=== PATIENT | female | born 1970 | race Caucasian/White ===

== ENCOUNTER 2024-01-14 13:47 | Emergency (ER) | payer SELFPAY ==
[2024-01-14 13:48] VITALS: BP 142/96
[2024-01-14 14:12] LABS: Urine Albumin Negative (Neg - Trace); Urine Bilirubin Negative (Negative); Urine Character Slightly Cloudy (Clear); Urine Color Yellow; Urine Glucose Negative (Negative); Urine Ketone Negative (Negative); Urine Leukocyte Negative (Negative); Urine Nitrite Negative (Negative); Urine Occult Blood Negative (Negative); Urine Urobilinogen Negative (Neg - 1+)
[2024-01-14 14:13] LABS: % Basophils 0.7 % (0-2); % Eosinophils 2.2 % (0-6); % Immature Granulocytes 0.2 % (0-0.5); % Lymphocytes 32.1 % (20.5-51.1); % Monocytes 10.3 % (1.7-9.3); % Neutrophils 54.5 % (42.2-75.2); Absolute Eosinophils 0.1 10^3/uL (0-0.7); Absolute Lymphocytes 1.3 10^3/uL (1.2-3.4); Absolute Monocytes 0.4 10^3/uL (0.1-0.6); Absolute Neutrophils 2.3 10^3/uL (1.4-6.5); Hematocrit 38.9 % (37.0-47.0); Hemoglobin 14.4 g/dL (12.0-16.0); Mean Corpuscular Hgb 33.6 pg (27.0-31.0); Mean Corpuscular Volume 90.7 fL (81.0-99.0); Mean Platelet Volume 9.2 fL (7.4-10.4); Nucleated Red Blood Cells % 0 %; Platelet Count 303 10^3/uL (130-400); Red Blood Cell Count 4.29 10^6/uL (4.20-5.40); Red Cell Dist. Width 11.1 % (11.5-14.5); White Blood Cell Count 4.2 10^3/uL (4.8-10.8)
[2024-01-14 14:24] LABS: HCG, Serum Qualitative Screen Negative
[2024-01-14 14:51] LABS: Alkaline Phosphatase 76 U/L (38-126); Blood Urea Nitrogen 13 mg/dl (7-17); Calcium 9.4 mg/dl (8.4-10.2); Carbon Dioxide 22 mmol/L (22-30); Chloride 107 mmol/L (98-107); Glucose 106 mg/dl (70-99); Potassium 4.4 mmol/L (3.5-5.1); Sodium 139 mmol/L (135-145); eGFR > 60.00
[2024-01-14 14:52] LABS: ALT (SGPT) 18 U/L (0-35); AST (SGOT) 24 U/L (14-36); Albumin 4.3 g/dl (3.5-5.0); Total Bilirubin 0.7 mg/dl (0.2-1.3); Total Protein 6.7 g/dl (6.3-8.2)
--- NOTE | 2024-01-14 15:11 | ED.GENMED ---
History of Present Illness
General
Chief Complaint: Abdominal Symptoms
Source: patient
Time Seen by Provider: 01/14/24 14:56
History of Present Illness
History of Present Illness:
53yoF with a history of anxiety, depression, and GERD presenting for evaluation of abdominal pain. Patient reports low back and LLQ abdominal pain for the past month. The pain was initially coming in waves and stabbing. The pain resolved for a few
days but started to worsen about a week ago. The pain is now constant and is described as a 'scraping' sensation. The pain feels similar to when she had appendicitis in the past. The pain radiates to the low back and the L groin region. Pain is
worse with movement of the L leg and standing. She has been taking ibuprofen without much relief. She has been seen by her PCP as well as urgent care for her symptoms. She was at urgent care about 2 weeks ago. She had blood work, UA, and a KUB done.
She was told that she likely had a kidney stone. Patient denies any dysuria, hematuria, fevers, chills, vomiting, paresthesias. She is having normal bowel movements. Previous abdominal surgeries include an appendectomy and section.
Past History
Past History
ED Past Medical History: Hypercholesterolemia and Psychiatric (A/D)
ED Past Surgical History: Appendectomy and
Social History
Tobacco: Smoker (cigars)
Alcohol: None
Drug: None
Personal:
Living: with family
Phy Exam
General Physical Exam
General Presentation: well appearing and no apparent distress
General age: appears stated age
General Skin: warm and dry
General Habitus: normal
General Mental: alert
ENT Exam
ENT Exam: normocephalic
Cardiovascular Exam
Cardiovascular Exam: regular rate/rhythm
Pulmonary Exam
Pulmonary Exam: lungs clear, no respiratory distress, no crackles and no wheezing
Gastrointestinal Exam
Gastrointestinal Exam: soft, non distended and tender (+Tenderness in LLQ. No rebound, guarding, or rigidity. )
Palpation: left lower quadrant: Moderate tenderness
Neurological Exam
Neurological Exam: alert
Nicole Coma Scale
Eye Opening: Spontaneous
Verbal Response: Oriented
Motor Response: Obeys Commands
GCS Total Score: 15
Musculoskeletal Exam
Musculoskeletal Exam: other (No reproducible tenderness in lumbar region.)
Skin Exam
Skin Exam: normal color and warm/dry
Psychiatric Exam
Psychiatric Exam: normal mood/affect
Course
Orders/Labs/Results
Orders:
Orders
01/14/24 13:52
Test Result ONCE
01/14/24 14:00
Complete Blood Count/With Diff Urgent
Comprehensive Metabolic Panel Urgent
HCG, Serum Qualitative Screen Urgent
Comment: Notify provider if positive test present
Lipase Urgent
Urinalysis Reflex To Culture Urgent
Date Specimen was Collected: 01/14/24
Time Specimen was Collected: 13:52
01/14/24 15:10
CT Abd/pel W Iv And Oral Contr Urgent
Comment:
Reason For Exam: LLQ pain, low back pain, L groin pain
Iohexol [Omnipaque] See Protocol PO NOW STA
01/14/24 15:58
Ketorolac [Toradol] 15 mg IV NOW STA
Abnormal Lab Results
01/14/24
14:00
WBC 4.2 L 10^3/uL
(4.8-10.8)
MCH 33.6 H pg
(27.0-31.0)
RDW 11.1 L %
(11.5-14.5)
Monocytes % 10.3 H %
(1.7-9.3)
Creatinine 0.5 L mg/dL
(0.6-1.0)
Glucose 106 H mg/dl
(70-99)
01/14/24 14:00
01/14/24 14:00
Vital Signs
Initial and Last Documented VS:
Initial Vital Signs
Temp Pulse Resp BP Pulse Ox
98.2 F 100 16 142/96 97
01/14/24 13:48 01/14/24 13:48 01/14/24 13:48 01/14/24 13:48 01/14/24 13:48
Last Documented Vital Signs
Temp Pulse Resp BP Pulse Ox
98.2 F 75 18 151/97 98
01/14/24 13:48 01/14/24 18:57 01/14/24 17:27 01/14/24 18:57 01/14/24 18:57
MDM/Problems Addressed
Differential Diagnosis Includes:
53yoF here with LLQ pain x 1 month. Radiates to low back and L groin. Was previously seen at urgent care and diagnosed clinically with a kidney stone. Here with worsening symptoms. She is afebrile and hemodynamically stable. She is well appearing in
no distress. No signs of peritonitis on abdominal exam. Differential diagnosis includes but is not limited to: diverticulitis, colitis, musculoskeletal, kidney stone, malignancy, nonspecific abdominal pain
Initial ED plan: Abdominal labs and UA obtained in triage. Labs unremarkable including normal renal function, LFTs, lipase. UA bland without microscopic hematuria or signs of infection. Will proceed with CT abdomen.
*Critical Care Note
Total Time (30-74mins, 75-104mins- exclusive of procedures): Not Applicable
Update Note
Update Note:
CT shows a 2.3cm benign appearing L ovarian cyst. There is also a benign LUQ intussusception which is non-obstructing. No obstructive symptoms currently, suspect this is 2/2 peristalsis. Imaging also reveals severe degenerative disc disease along
the L side of L4/L5. No ureterolithiasis seen. Unclear etiology of symptoms. Pain may be 2/2 ovarian cyst vs. radiation from lumbar spine. Offered pelvic ultrasound in ED although very low clinical suspicion for torsion as symptoms have been ongoing
x 1 month. Patient declining ultrasound. She was advised to f/u with PCP, GI, and OBGYN. ED return precautions discussed. She was discharged in stable condition.
ED Attending Note
-
Portions of this chart may have been created with voice recognition software.� Occasional wrong word or��sound alike� substitutions may have occurred due to the inherent limitations of voice recognition software.
Discharge Plan
Departure
Patient Disposition: Home (Routine Discharge)
Date of Disposition: 01/14/24
Time of Disposition: 18:48
Patient with high blood pressure during this ER visit?: No
Discharge Problem:
Left lower quadrant abdominal pain, Cyst of left ovary
Instructions: Abdominal Pain
Prescriptions:
No Action
lamotrigine 100 MG tablet
300 mg PO DAILY
venlafaxine [Effexor] 100 MG tablet
200 mg PO DAILY
methylprednisolone [Medrol (Steve)] 4 MG tablets,dose pack
4 tab PO . DIRECT Qty: 1 0RF
oxycodone-acetaminophen 5 MG/325 MG tablet
1 tab PO Q6HPRN PRN (Reason: pain) Qty: 12 0RF
Referrals:
Manjit Garcia MD [Active] -
Poornima Wilkins, DO [Active] -
UNKNOWN - PT DOES,NOT KNOW [Unknown Provider] -
Activity Restrictions/Additional Instructions:
Apply heat to affected area. Take ibuprofen as needed for pain.
Please follow-up with your family doctor, gastroenterology, and OBGYN.
Return to the ER with any new or worsening symptoms.
Interventions
Interventions:
*Risk Screen - Suicide Last Done: 01/14/24 13:48
*General Assessment Last Done: 01/14/24 13:48
*Neglect/Abuse Screening Last Done: 01/14/24 13:48
*ED COVID-19 Vaccine History Last Done: 01/14/24 13:48
*Nursing Disposition Last Done: 01/14/24 18:57
UV-Aofbkv-Dapnfbwaoz Assessment Last Done: 01/14/24 15:47
Discharge Date and Time
Discharge Date/Time: 01/14/24 19:00
Print Language: SAO TOMEAN
[2024-01-14] MEDS: OMNIPAQUE 50 ML PO (15:17)
[2024-01-14 15:22] LABS: Lipase 86 U/L (23-300)
[2024-01-14] MEDS: TORADOL 15 MG IV (16:04)
[2024-01-14 17:27] VITALS: BP 132/84
[2024-01-14 18:57] VITALS: BP 151/97
== END 2024-01-14 19:00 | disposition home or self-care (01) ==
LOC: EMR 13:47
PROVIDERS: EMERGENCY PHYSICIAN Student in an Organized Health Care Education/Training Program; FAMILY PHYSICIAN Family Medicine
DX: R10.30 Lower abdominal pain, unspecified (principal); N83.202 Unspecified ovarian cyst, left side; F32.A Depression, unspecified; F41.9 Anxiety disorder, unspecified; K21.9 Gastro-esophageal reflux disease without esophagitis; F17.290 Nicotine dependence, other tobacco product, uncomplicated
CPT/HCPCS: 99285; 96374; 74177; 80053; 81003; 83690; 84703; 85025; Q9967